=== PATIENT | female | born 2000 ===

== ENCOUNTER 2020-11-26 02:09 | Inpatient (IN) | payer MEDICAID ==
[~2020-11-26] VITALS: Ht 154.9 cm; Wt 134.7 kg
[2020-11-26] MEDS ORDERED: DOCUSATE 100 MG CAPSULE PO PRN (02:30)
[2020-11-26] MEDS ORDERED: ONDANSETRON ODT 4 MG PO PRN (02:30)
[2020-11-26] MEDS ORDERED: BISACODYL 10 MG SUPP PR PRN (02:30)
[2020-11-26] MEDS ORDERED: POLYETHYLENE GLYCOL 17 GM PACKET PO PRN (02:30)
[2020-11-26] MEDS ORDERED: PLEASE ENTER ALLERGIES MC SCH (04:00)
[2020-11-26 04:20] VITALS: BP 138/91
[2020-11-26] MEDS ORDERED: ESCI20TA10 PO (06:07)
[2020-11-26] MEDS ORDERED: BREX3TAB PO (06:07)
[2020-11-26 07:14] VITALS: BP 125/87
[2020-11-26 09:25] LABS: CHOL/HDL RATIO 4.6; LDL/HDL RATIO 3.1 (0.5-3.0)
[2020-11-26] MEDS ORDERED: DIPHTHERIA-TETANUS ADULT 0.5ML IM-VACC ONE (13:30)
[2020-11-26] MEDS ORDERED: DIPH,PERTUSS(ACELL),TET VAC/PF 0.5 ML IM-VACC ONE (14:30)
[2020-11-26] MEDS: NICOTINE 7 MG/24 HR PATCH.TD24 TD SCH (15:04)
[2020-11-26] MEDS: ESCITALOPRAM 10MG TABLET PO SCH (15:04)
[2020-11-26 19:26] VITALS: BP 130/89
[2020-11-27 07:21] VITALS: BP 136/85
[2020-11-27] MEDS: QUETIAPINE 25MG TABLET PO PRN ×2 (08:26→20:53)
[2020-11-27] MEDS: ESCITALOPRAM 10MG TABLET PO SCH (08:26)
[2020-11-27] MEDS: NICOTINE 7 MG/24 HR PATCH.TD24 TD SCH (13:26)
[2020-11-27 19:30] VITALS: BP 140/95
[2020-11-28 07:46] VITALS: BP 135/89
[2020-11-28] MEDS: ACETAMINOPHEN 325 MG TABLET PO PRN ×2 (07:51→21:08)
[2020-11-28] MEDS: QUETIAPINE 25MG TABLET PO PRN ×2 (09:12→16:38)
[2020-11-28] MEDS: ESCITALOPRAM 10MG TABLET PO SCH (09:12)
[2020-11-28] MEDS: NICOTINE 7 MG/24 HR PATCH.TD24 TD SCH (09:21)
[2020-11-28 19:48] VITALS: BP 110/78
[2020-11-28] MEDS: REXULTI 3 MG HOMEMEDPO SCH (20:32)
[2020-11-29 07:44] VITALS: BP 129/87
[2020-11-29] MEDS: ESCITALOPRAM 10MG TABLET PO SCH (09:02)
[2020-11-29] MEDS: ACETAMINOPHEN 325 MG TABLET PO PRN (13:08)
[2020-11-29] MEDS: NICOTINE 7 MG/24 HR PATCH.TD24 TD SCH (14:40)
[2020-11-29 19:24] VITALS: BP 138/94
[2020-11-29] MEDS: QUETIAPINE 25MG TABLET PO PRN (19:52)
[2020-11-29] MEDS: REXULTI 3 MG HOMEMEDPO SCH (19:53)
[2020-11-29] MEDS: DOXEPIN 25 MG CAPSULE PO SCH (22:22)
[2020-11-30 08:11] VITALS: BP 113/78
[2020-11-30] MEDS: ESCITALOPRAM 10MG TABLET PO SCH (09:30)
[2020-11-30] MEDS: ACETAMINOPHEN 325 MG TABLET PO PRN ×2 (09:30→20:17)
[2020-11-30] MEDS: NICOTINE 7 MG/24 HR PATCH.TD24 TD SCH (15:32)
[2020-11-30 19:28] VITALS: BP 131/87
[2020-11-30] MEDS: LITHIUM CARBONATE 300 MG TABLET.ER PO SCH (20:16)
[2020-11-30] MEDS: REXULTI 3 MG HOMEMEDPO SCH (20:17)
[2020-11-30] MEDS: DOXEPIN 25 MG CAPSULE PO SCH (20:17)
[2020-12-01 07:26] VITALS: BP 127/84
[2020-12-01] MEDS: ESCITALOPRAM 10MG TABLET PO SCH (08:44)
[2020-12-01] MEDS: NICOTINE 7 MG/24 HR PATCH.TD24 TD SCH (08:45)
[2020-12-01 19:31] VITALS: BP 139/85
[2020-12-01] MEDS: DOXEPIN 25 MG CAPSULE PO SCH (21:11)
[2020-12-01] MEDS: LITHIUM CARBONATE 300 MG TABLET.ER PO SCH (21:11)
[2020-12-01] MEDS: REXULTI 3 MG HOMEMEDPO SCH (21:11)
[2020-12-02 07:20] VITALS: BP 131/86
[2020-12-02] MEDS: ESCITALOPRAM 10MG TABLET PO SCH (08:36)
[2020-12-02] MEDS: NICOTINE 7 MG/24 HR PATCH.TD24 TD SCH (08:36)
== END 2020-12-02 10:05 | disposition home or self-care (01) | DRG 885 ==
LOC: 3E 03:22
PROVIDERS: ADMIT Psychiatry & Neurology Psychosomatic Medicine; ATTEND Psychiatry & Neurology Psychosomatic Medicine
DX: F33.3 Major depressive disorder, recurrent, severe with psychotic symptoms (principal); Z68.43 Body mass index [BMI] 50.0-59.9, adult; E66.9 Obesity, unspecified; F12.10 Cannabis abuse, uncomplicated; F17.200 Nicotine dependence, unspecified, uncomplicated; F41.9 Anxiety disorder, unspecified; G47.00 Insomnia, unspecified; J45.909 Unspecified asthma, uncomplicated; Z79.899 Other long term (current) drug therapy; Z82.3 Family history of stroke; F10.20 Alcohol dependence, uncomplicated; Y90.9 Presence of alcohol in blood, level not specified
CPT/HCPCS: 36415; 71045; 80061; 82607; 84439; 84443; 90715